=== PATIENT | female | born 1990 | race Caucasian/White ===

== ENCOUNTER 2019-09-29 10:16 | Emergency (ER) | payer BC ==
--- NOTE | 2019-09-29 10:27 | ED.PDOC ---
History of Present Illness - General Time Seen by Provider: 09/29/19 10:25 - History of Present Illness Allergies/Adverse Reactions: Allergies NO KNOWN ALLERGY Allergy (Verified 01/02/18 19:44) Home Medications: Ambulatory Orders Cephalexin Monohydrate [Keflex] 500 mg PO TID #20 cap 09/12/15 Past Medical History (General) - Patient Medical History Hx Seizures: No Hx Stroke: No Hx Dementia: No Hx Asthma: No Hx of COPD: No Hx Cardiac Disorders: No Hx Congestive Heart Failure: No Hx Pacemaker: No Hx Hypertension: No Hx Thyroid Disease: No Hx Diabetes: No Hx Gastroesophageal Reflux: No Hx Renal Disease: No Hx Cancer: No Hx of HIV: No Hx Hepatitis C: No Hx MRSA: No - Vaccination History Hx Tetanus, Diphtheria Vaccination: Yes Hx Influenza Vaccination: Yes Hx Pneumococcal Vaccination: No - Social History Hx Tobacco Use: No Hx Alcohol Use: No Hx Substance Use: No Hx Substance Use Treatment: No Hx Depression: No - Female History Hx Last Menstrual Period: 04/17/15 Patient : No Family Medical History - Family History Mother Family History: No Known Departure - Departure Disposition: Discharge to Home or Self Jail Medications: Ambulatory Orders Cephalexin Monohydrate [Keflex] 500 mg PO TID #20 cap 09/12/15
--- NOTE | 2019-09-29 10:41 | ED.PDOC ---
History of Present Illness - General Chief Complaint: Respiratory Problem Time Seen by Provider: 09/29/19 10:25 Source: patient, RN notes reviewed, Vital Signs reviewed Exam Limitations: no limitations - History of Present Illness Initial Comments: This is a 28-year-old female with no significant past medical history presenting to the emergency department with approximately 24 to 48 hours of nausea, di arrhea, diffuse body aches, fevers. Denies any sick contacts, denies any recent travel. No COVID contacts. She denies any chest pain, cough, or shortness of breath. She also reports some urgency with urination, but decreased urine output. She denies any abdominal pain. She has not taken anything for her symptoms. No recent antibiotic use. Allergies/Adverse Reactions: Allergies NO KNOWN ALLERGY Allergy (Verified 09/29/19 11:07) Home Medications: Ambulatory Orders Cephalexin Monohydrate [Keflex] 500 mg PO TID #20 cap 09/12/15 Ondansetron Odt [Zofran ODT] 8 mg PO Q8H PRN #15 tab 09/29/19 RX: Tramadol HCl 50 - 100 mg PO Q6H PRN #20 tab 09/29/19 Sulfa/Trimeth 800/160 (Ds) Tab [Bactrim DS] 1 tablet PO BID #20 tab 09/29/19 Review of Systems - Review of Systems Constitutional: States: chills, fever EENTM: Denies: nose pain, nose congestion, throat pain, mouth pain, mouth swelling Respiratory: Denies: cough, short of breath Cardiology: Denies: chest pain, edema, palpitations Gastrointestinal/Abdominal: States: diarrhea, nausea. Denies: abdominal pain, vomiting Genitourinary: States: frequency. Denies: discharge, dysuria, hematuria Musculoskeletal: States: joint pain, muscle pain. Denies: back pain, joint swelling, muscle stiffness, neck pain Skin: Denies: dryness, lesions, rash Neurological: States: headache. Denies: paresthesia, tingling Endocrine: States: no symptoms reported Hematologic/Lymphatic: States: no symptoms reported Past Medical History (General) - Patient Medical History Hx Seizures: No Hx Stroke: No Hx Dementia: No Hx Asthma: No Hx of COPD: No Hx Cardiac Disorders: No Hx Congestive Heart Failure: No Hx Pacemaker: No Hx Hypertension: No Hx Thyroid Disease: No Hx Diabetes: No Hx Gastroesophageal Reflux: No Hx Renal Disease: No Hx Cancer: No Hx of HIV: No Hx Hepatitis C: No Hx MRSA: No - Vaccination History Hx Tetanus, Diphtheria Vaccination: Yes Hx Influenza Vaccination: Yes Hx Pneumococcal Vaccination: No - Social History Hx Tobacco Use: No Hx Alcohol Use: No Hx Substance Use: No Hx Substance Use Treatment: No Hx Depression: No - Female History Hx Last Menstrual Period: 04/17/15 Patient : No Family Medical History - Family History Mother Family History: No Known Physical Exam - Physical Exam General Appearance: Alert, Comfortable Eye Exam: bilateral normal Ears, Nose, Throat: hearing grossly normal, normal ENT inspection Neck: non-tender, full range of motion, supple, normal inspection Respiratory: chest non-tender, lungs clear, normal breath sounds, no respiratory distress Cardiovascular/Chest: no edema, no gallop, no JVD, no murmur, tachycardia Gastrointestinal/Abdominal: normal bowel sounds, non tender, soft Back Exam: normal inspection, no vertebral tenderness Extremity: normal range of motion, non-tender, normal inspection, no pedal edema Neurologic: no motor/sensory deficits, alert, normal mood/affect, oriented x 3 Skin Exam: normal color, warm/dry Progress - Progress Progress: 09/29/19 12:51 Recheck. Heart rate down to 105. Discussed labs, plan for repeat lactic. Patient states she is feeling better, pain well controlled, nausea improved. At this time given her clinical improvement I do not feel she needs admission for sepsis management. UA is suggestive of pyelonephritis, I suspect that is her likely source. Awaiting repeat lactate.CTA chest showed no evidence of PE, no CT evidence of COVID-19.I feel COVID-19 very unlikely cause for her symptoms given clear alternative source, no CT lesion suggestive of COVID-19. 09/29/19 13:39 Rechecked. Repeat lactic down to 0.8. Heart rate down to 95, patient resting comfortably. No indication for admission at this time given clinical improvement. Will discharge home with antibiotics, pain control, antiemetics. Recommended patient push fluids. Strict warnings given to return the emergency room for worsening fever, intractable vomiting, increased pain, or any other concerns. Recommended follow-up with PCP in 3 to 5 days for recheck. DDX: Sepsis, gastroenteritis, UTI/pyelonephritis, , dehydration, low suspicion for COVID-19 Willie Fofana DO [facility] #[id number] - Results/Orders Results/Orders: EKG reviewed by me at 11:30 AM. EKG shows sinus tachycardia rate of 114, normal axis, normal intervals, no ST segment elevations or depressions. Chest x-ray reviewed personally by me. No infiltrate, no pneumothorax EXAM DESCRIPTION: CTA Chest CLINICAL HISTORY: 28 years Female, tachycardia, SOB, elevated D-dimer TECHNIQUE: Volumetric CT angiographic data acquisition of the thorax was obtained using the pulmonary embolism protocol after administration of IV contrast. Standard axial and coronal and CT angiographic MIP sagittal and coronal images are submitted. This exam was performed according to our departmental dose-optimization program, which includes automated exposure control, adjustment of the mA and/or kV according to patient size and/or use of iterative reconstruction technique. COMPARISON: Concurrent chest radiograph FINDINGS: The thyroid gland is unremarkable. No axillary adenopathy. Normal caliber thoracic aorta. No pericardial effusion. No evidence of acute process in the visualized upper abdomen. No mediastinal adenopathy. Suboptimal contrast bolus timing. No definitive central or segmental pulmonary embolus. No pneumothorax. No pleural effusion. No focal consolidation. No suspicious pulmonary nodule. No acute or suspicious osseous abnormality. Scattered degenerative changes present. IMPRESSION: Suboptimal contrast bolus timing, however there is no definitive pulmonary embolus. No evidence of acute process in the chest. Electronically signed by: Marcello Moss MD 09/29/2019 12:38 PM Laboratory Tests 09/29/19 09/29/19 09/29/19 10:35 10:35 10:35 WBC 16.0 H RBC 4.19 L Hgb 11.9 L Hct 35.6 L MCV 84.8 MCH 28.4 MCHC 33.5 RDW 16.2 H Plt Count 198 MPV 10.7 H Absolute Neuts (auto) 14.50 H Absolute Lymphs (auto) 0.50 L Absolute Monos (auto) 0.80 Absolute Eos (auto) 0.00 Absolute Basos (auto) 0.10 Neutrophils % 91.1 H Lymphocytes % 3.0 L Monocytes % 5.1 Eosinophils % 0.0 L Basophils % 0.8 PT 10.2 INR 1.03 PTT (SP) 27.0 D-Dimer, Quantitative 663 H* Sodium 135 Potassium 3.5 L Chloride 104 Carbon Dioxide 20 L Anion Gap 14.5 BUN 9 Creatinine 0.77 BUN/Creatinine Ratio 11.7 Random Glucose 152 H Serum Osmolality 271.8 L Lactic Acid Calcium 9.0 Total Bilirubin 0.6 AST 31 ALT 33 Alkaline Phosphatase 74 Creatine Kinase 33 CK-MB (CK-2) 0.4 CK-MB (CK-2) % Not Reportable Troponin I 0.03 C-Reactive Protein Serum Total Protein 7.7 Albumin 3.6 Globulin 4.1 H Albumin/Globulin Ratio 0.9 L Serum HCG, Qual Urine Color Urine Appearance Urine pH Ur Specific Bonnie Urine Protein Urine Glucose (UA) Urine Ketones Urine Blood Urine Nitrite Urine Bilirubin Urine Urobilinogen Ur Leukocyte Esterase Urine RBC Urine WBC Ur Epithelial Cells Urine Bacteria 09/29/19 09/29/19 09/29/19 10:35 10:35 10:35 WBC RBC Hgb Hct MCV MCH MCHC RDW Plt Count MPV Absolute Neuts (auto) Absolute Lymphs (auto) Absolute Monos (auto) Absolute Eos (auto) Absolute Basos (auto) Neutrophils % Lymphocytes % Monocytes % Eosinophils % Basophils % PT INR PTT (SP) D-Dimer, Quantitative Sodium Potassium Chloride Carbon Dioxide Anion Gap BUN Creatinine BUN/Creatinine Ratio Random Glucose Serum Osmolality Lactic Acid 2.3 H Calcium Total Bilirubin AST ALT Alkaline Phosphatase Creatine Kinase CK-MB (CK-2) CK-MB (CK-2) % Troponin I C-Reactive Protein 23.3 H* Serum Total Protein Albumin Globulin Albumin/Globulin Ratio Serum HCG, Qual Negative Urine Color Urine Appearance Urine pH Ur Specific Bonnie Urine Protein Urine Glucose (UA) Urine Ketones Urine Blood Urine Nitrite Urine Bilirubin Urine Urobilinogen Ur Leukocyte Esterase Urine RBC Urine WBC Ur Epithelial Cells Urine Bacteria 09/29/19 09/29/19 11:54 12:56 WBC RBC Hgb Hct MCV MCH MCHC RDW Plt Count MPV Absolute Neuts (auto) Absolute Lymphs (auto) Absolute Monos (auto) Absolute Eos (auto) Absolute Basos (auto) Neutrophils % Lymphocytes % Monocytes % Eosinophils % Basophils % PT INR PTT (SP) D-Dimer, Quantitative Sodium Potassium Chloride Carbon Dioxide Anion Gap BUN Creatinine BUN/Creatinine Ratio Random Glucose Serum Osmolality Lactic Acid 0.8 Calcium Total Bilirubin AST ALT Alkaline Phosphatase Creatine Kinase CK-MB (CK-2) CK-MB (CK-2) % Troponin I C-Reactive Protein Serum Total Protein Albumin Globulin Albumin/Globulin Ratio Serum HCG, Qual Urine Color Yellow Urine Appearance Sl cloudy Urine pH 6.0 Ur Specific Bonnie <= 1.005 Urine Protein 30 Urine Glucose (UA) Negative Urine Ketones Negative Urine Blood Moderate H Urine Nitrite Positive H Urine Bilirubin Negative Urine Urobilinogen 0.2 Ur Leukocyte Esterase Moderate H Urine RBC 5-10 H Urine WBC 10-20 H Ur Epithelial Cells 0 Urine Bacteria 1+ Departure - Departure Clinical Impression: Acute pyelonephritis, Vomiting Disposition: Discharge to Home or Self Care Condition: Good Departure Forms: ED Discharge - Pt. Copy, Patient Portal Self Enrollment Instructions: Urinary Tract Infections in Adults Referrals: Alan Bill MD [Primary Care Provider] - 1-5 Days Prescriptions: Ondansetron Odt [Zofran ODT] 8 mg PO Q8H PRN #15 tab PRN Reason: Nausea Sulfa/Trimeth 800/160 (Ds) Tab [Bactrim DS] 1 tablet PO BID #20 tab RX: Tramadol HCl 50 - 100 mg PO Q6H PRN #20 tab PRN Reason: Moderate To Severe Pain Home Medications: Ambulatory Orders Cephalexin Monohydrate [Keflex] 500 mg PO TID #20 cap 09/12/15 Ondansetron Odt [Zofran ODT] 8 mg PO Q8H PRN #15 tab 09/29/19 RX: Tramadol HCl 50 - 100 mg PO Q6H PRN #20 tab 09/29/19 Sulfa/Trimeth 800/160 (Ds) Tab [Bactrim DS] 1 tablet PO BID #20 tab 09/29/19 Additional Instructions: Return to the emergency room immediately for worsening pain, intractable vomiting, changes in mental status, inability to tolerate p.o. medications, or any other concerns. Drink plenty of fluids. Take Tylenol/ibuprofen as directed as needed for mild pain or fever.
[2019-09-29] MEDS ORDERED: SODIUM CHL 0.9% 100ML MINI-BAG 100 ML IVPB ONE (10:44)
[2019-09-29] MEDS: SODIUM CHLORIDE 0.9% 1000ML 2,000 ML IVS ONE (10:51)
[2019-09-29] MEDS: ACETAMINOPHEN 500 MG TAB PO ONE (10:52)
[2019-09-29] MEDS: cefTRIAXone SODIUM 2 GM in SODIUM CHL 0.9% 100ML MINI-BAG 100 ML IVPB ONE (10:52)
[2019-09-29] MEDS: SODIUM CHLORIDE 0.9% (FLUSH) 10 ML SYG IV PRN (10:53)
--- NOTE | 2019-09-29 11:35 | RAD ---
EXAM DESCRIPTION: Chest,1 View CLINICAL HISTORY: 28 years Female, fever COMPARISON: None. FINDINGS: One view/radiograph Heart size and pulmonary vessels are within normal limits. There is no pneumothorax or pleural effusion. The lungs are clear bilaterally. The soft tissues are unremarkable. No acute osseous findings. IMPRESSION: No acute cardiopulmonary abnormality. Electronically signed by: Marcello Moss MD 09/29/2019 11:33 AM CDT
--- NOTE | 2019-09-29 12:39 | CT ---
EXAM DESCRIPTION: CTA Chest CLINICAL HISTORY: 28 years Female, tachycardia, SOB, elevated D-dimer TECHNIQUE: Volumetric CT angiographic data acquisition of the thorax was obtained using the pulmonary embolism protocol after administration of IV contrast. Standard axial and coronal and CT angiographic MIP sagittal and coronal images are submitted. This exam was performed according to our departmental dose-optimization program, which includes automated exposure control, adjustment of the mA and/or kV according to patient size and/or use of iterative reconstruction technique. COMPARISON: Concurrent chest radiograph FINDINGS: The thyroid gland is unremarkable. No axillary adenopathy. Normal caliber thoracic aorta. No pericardial effusion. No evidence of acute process in the visualized upper abdomen. No mediastinal adenopathy. Suboptimal contrast bolus timing. No definitive central or segmental pulmonary embolus. No pneumothorax. No pleural effusion. No focal consolidation. No suspicious pulmonary nodule. No acute or suspicious osseous abnormality. Scattered degenerative changes present. IMPRESSION: Suboptimal contrast bolus timing, however there is no definitive pulmonary embolus. No evidence of acute process in the chest. Electronically signed by: Marcello Moss MD 09/29/2019 12:38 PM CDT
[2019-09-29 14:02] VITALS: BP 101/64; TEMP 98; O2SAT 100
== END 2019-09-29 14:08 | disposition home or self-care (01) ==
LOC: ER 10:16
DX: N10 Acute pyelonephritis (principal); R50.9 Fever, unspecified; R00.0 Tachycardia, unspecified; R11.10 Vomiting, unspecified; R79.1 Abnormal coagulation profile
CPT/HCPCS: 36415; 71045; 71275; 80053; 81001; 82550; 82553; 83605; 84484; 84703; 85025; 85379; 85610; 85730; 86140; 87040; 87086; 93005; J0696; J7030; J7050

== ENCOUNTER 2020-02-21 02:33 | Emergency (ER) | payer BC ==
--- NOTE | 2020-02-21 02:34 | ED.PDOC ---
History of Present Illness - General Time Seen by Provider: 02/21/20 02:33 Source: patient, RN notes reviewed, Vital Signs reviewed Additional Information: 29 yo F comes in with 2 weeks of tooth pain. Has an appointment with dentist tomorrow, but pain was so bad couldn't stand it much longer. Has taken 2000 mg of Tylenol and 200 mg of ibuprofen. NO fever. no nausea. denies trauma. states she has had long standing issues with tooth but pain gotten progressively worse over the past two weeks. - History of Present Illness Timing/Duration: last week EENT Location: mouth Improving Factors: nothing Worsening Factors: movement, other - chewing Allergies/Adverse Reactions: Allergies NO KNOWN ALLERGY Allergy (Verified 09/29/19 11:07) Home Medications: Ambulatory Orders Clindamycin HCl 300 mg PO Q8H #21 cap 02/21/20 Review of Systems - Review of Systems Constitutional: Denies: chills, fever EENTM: States: mouth pain. Denies: throat pain Respiratory: Denies: cough, short of breath Cardiology: Denies: chest pain, palpitations Gastrointestinal/Abdominal: Denies: abdominal pain, nausea, vomiting Genitourinary: Denies: frequency Musculoskeletal: Denies: back pain, neck pain Skin: Denies: rash Neurological: Denies: headache, numbness, paresthesia, weakness Endocrine: Denies: unexplained weight loss Hematologic/Lymphatic: Denies: easy bleeding, easy bruising Past Medical History (General) - Patient Medical History Hx Seizures: No Hx Stroke: No Hx Dementia: No Hx Asthma: No Hx of COPD: No Hx Cardiac Disorders: No Hx Congestive Heart Failure: No Hx Pacemaker: No Hx Hypertension: No Hx Thyroid Disease: No Hx Diabetes: No Hx Gastroesophageal Reflux: No Hx Renal Disease: No Hx Cancer: No Hx of HIV: No Hx Hepatitis C: No Hx MRSA: No - Vaccination History Hx Tetanus, Diphtheria Vaccination: Yes Hx Influenza Vaccination: Yes Hx Pneumococcal Vaccination: No - Social History Hx Tobacco Use: No Hx Alcohol Use: No Hx Substance Use: No Hx Substance Use Treatment: No Hx Depression: No - Female History Hx Last Menstrual Period: 04/17/15 Patient : No Family Medical History - Family History Mother Family History: No Known Hx Family Diabetes: Yes Physical Exam - Physical Exam General Appearance: Alert, Comfortable, No apparent distress, Well Developed, Well Groomed, Well Hydrated, Well Nourished Eye Exam: bilateral normal Nasal Exam: normal inspection Throat Exam: normal mouth inspection, pharynx normal, dental tenderness - tooth 16 cracked, mild erythema no drainage. Neck: non-tender, full range of motion, supple, normal inspection, trachea midline Cardiovascular/Respiratory: regular rate, rhythm, no M/R/G, normal peripheral pulses, no JVD, normal breath sounds, no respiratory distress Abdominal Exam: non-tender, no organomegaly, no hernia Neurologic: [employer] II-XII nml as tested, no motor/sensory deficits, alert, normal mood/affect, oriented x 3 Skin Exam: normal color, warm/dry Progress - Progress Progress: 02/21/20 02:52 patient states she has had her BTL, no change of . Given 30 mg IM toradol and norco x 1 for pain. Tooth also numbed with one second spray of oral benzocaine. Will discharge with tramadol. no hx of seizures. Keep appointment with dentist. The data reviewed when caring for this patient included: nurse notes,etc. The history and assessments from nurses notes were reviewed and considered, and the patient's home medication list was also reviewed and considered. My assessment and the results of testing completed here in the ED were discussed with the patient/family. All questions were answered, and they express understanding of my assessment and the plan. They have been instructed to return if their symptoms worsen, and have been asked to follow up with their dentist to recheck today's presenting complaint. return precautions given. I have reviewed medication, benefits, alternatives and side effects. Patient decided to proceed with medication.Patient discharged home in stable condition. Mi Agosto DO #[id number] Departure - Departure Clinical Impression: Dental caries, Painful mouth Time of Disposition: 02:53 Disposition: Discharge to Home or Self Care Instructions: Tooth Decay, Adult, Dental Pain (DC) Referrals: Alan Bill MD [Primary Care Provider] - 1-5 Days Prescriptions: Clindamycin HCl 300 mg PO Q8H #21 cap Home Medications: Ambulatory Orders Clindamycin HCl 300 mg PO Q8H #21 cap 02/21/20 Additional Instructions: keep your appointment with your dentist tomorrow.
[2020-02-21] MEDS ORDERED: KETOROLAC TROMETHAMINE INJ 30 MG/ML VIAL IM ONE (02:46)
[2020-02-21] MEDS ORDERED: HYDROcodone 7.5MG/APAP 325MG 1 EA TAB PO ONE (02:46)
[2020-02-21] MEDS ORDERED: CLINDAMYCIN HCL CAP 150 MG CAP PO ONE (02:47)
[2020-02-21] MEDS ORDERED: traMADol HCL 50 MG (ER DISP) # 6 TABS PO ONE (02:49)
[2020-02-21] MEDS ORDERED: BENZOCAINE 14% W/TETRACAINE 20 GM CAN TOP ONE (02:56)
[2020-02-21 03:31] VITALS: BP 134/89; TEMP 97.2; O2SAT 99
== END 2020-02-21 03:25 | disposition home or self-care (01) ==
LOC: ER 02:33
DX: K02.9 Dental caries, unspecified (principal); K03.81 Cracked tooth